=== PATIENT | male | born 1990 | race Caucasian/White ===

== ENCOUNTER 2019-09-27 19:48 | Emergency (ER) | payer OTHER ==
[2019-09-27 19:56] VITALS: TEMP 98.4
[2019-09-27] MEDS ORDERED: DIPH,PERTUS(ACELL)TETVAC-LF 0.5 ML VIAL IM ONE (20:14)
[2019-09-27] MEDS ORDERED: LIDOCAINE 1% INJ 10MG/ML (20 ML MDV) SQ STA (20:14)
--- NOTE | 2019-09-27 21:18 | XR ---
PROCEDURE: XR finger LT - 3V DATE AND TIME: 09/27/2019 8:35 PM CLINICAL INDICATION: PHH; laceration with saw TECHNIQUE: Department protocol COMPARISON: None FINDINGS: There is no fracture or malalignment. No radiopaque foreign body. No soft tissue emphysema. The soft tissues demonstrate irregularity and soft tissue swelling distally, consistent with the clin ical history. IMPRESSION: Soft tissue changes.
--- NOTE | 2019-09-27 21:26 | ED ---
General Adult HPI - General Chief complaint: Wound/Laceration Stated complaint: LT finger injury Time Seen by Provider: 09/27/19 19:57 Source: patient, RN notes reviewed, old records reviewed Mode of arrival: ambulatory Limitations: no limitations - History of Present Illness Initial comments: 29-year-old male patient presents to the chief complaint of laceration to left first digit with a table saw. Patient was cutting a piece of wood. Patient does not know date of last tetanus. Denies any other acute complaints. Systemic: Pt denies fatigue, fever/chills, rash. Pt denies weakness, night sweats, weight loss. Neuro: Pt denies headache, visual disturbances, syncope or pre-syncope. HEENT: Pt denies ocular discharge or irritation, otalgia, rhinorrhea, pharyngitis or notable lymphadenopathy. Cardiopulmonary: Pt denies chest pain, SOB, heart palpitations, dyspnea on exertion. Abdominal/GI: Pt denies abdominal pain, n/v/d. : Pt denies dysuria, burning w/ urination, frequency/urgency. Denies new onset urinary or bowel incontinence. MSK: Pt denies myalgia, loss of strength or function in extremities. Neuro: Pt denies new onset weakness, paresthesias. - Related Data Home Medications Medication Instructions Recorded Confirmed No Known Home Medications 09/27/19 09/27/19 Allergies Allergy/AdvReac Type Severity Reaction Status Date / Time No Known Allergies Allergy Verified 09/27/19 21:09 Review of Systems ROS Statement: Those systems with pertinent positive or pertinent negative responses have been documented in the HPI. ROS Other: All systems not noted in ROS Statement are negative. Past Medical History Past Medical History: No Reported History History of Any Multi-Drug Resistant Organisms: None Reported Past Surgical History: Tonsillectomy Past Psychological History: No Psychological Hx Reported Smoking Status: Never smoker Past Alcohol Use History: Occasional Past Drug Use History: None Reported General Exam - General Exam Comments Initial Comments: Constitutional: NAD, AOX3, Pt has pleasant affect. HEENT: NC/AT, trachea midline, neck supple,External ears appear normal, without discharge. Mucous membranes moist. Eyes PERRLA, EOM intact. There is no scleral icterus. No pallor noted. Cardiopulmonary: RRR, no murmurs, rubs or gallops, no JVD noted. Lungs CTAB in anterior and posterior elizabeth. No peripheral edema. Neuro: CN II-XII grossly intact. MSK: 2 cm stellate laceration pad of the second digit of left hand. Full active range of motion of digit. Neurovascularly intact. Capillary refill less than 2 seconds. Approximated with 4 simple interrupted sutures. Limitations: no limitations Course Vital Signs 09/27/19 09/27/19 19:53 21:53 Temperature 98.4 F Pulse Rate 80 82 Respiratory 20 18 Rate Blood Pressure 134/76 126/78 O2 Sat by Pulse 97 100 Oximetry Procedures - Laceration Laceration #1 Consent Obtained: verbal consent Indication: laceration Site: hand (pad of second digit left hand ) Size (cm): 2 Description: stellate, irregular Anesthetic Used: lidocaine 1% Anesthesia Technique: local infiltration Amount (mls): 2 Pre-repair: wound explored, irrigated extensively, deep structures intact Type of Sutures: nylon Size of Sutures: 5-0 Number of Sutures: 4 Technique: simple, interrupted Patient Tolerated Procedure: well, no complications Medical Decision Making - Medical Decision Making 29-year-old male patient presents to the chief complaint of laceration to left first digit with a table saw. Patient was cutting a piece of wood. Patient does not know date of last tetanus. Denies any other acute complaints. Patient vital signs are stable, afebrile. Physical exam displayed: 2 cm stellate laceration pad of the second digit of left hand. Full active range of motion of digit. Neurovascularly intact. Capillary refill less than 2 seconds. Approximated with 4 simple interrupted sutures. Plain film did not display any fracture or foreign body. Patient will be discharged with outpatient follow-up and return precautions. Case discussed with Dr. Mueller. Disposition Clinical Impression: Finger laceration Disposition: HOME SELF-CARE Condition: Stable Instructions (If sedation given, give patient instructions): Laceration (ED) Additional Instructions: Please return for suture removal: Hand: 7-10 days keep area clean and covered. Please monitor for signs and symptoms of infection including: redness, warmth, drainage, discharge. Please return to ED if these signs or symptoms occur, new signs or symptoms develop or if condition worsens in anyway. Follow up with PCP in 1-2 days. Return to ER if any worsening symptoms. Is patient prescribed a controlled substance at d/c from ED?: No Referrals: None,Stated [Primary Care Provider] - 1-2 days
[2019-09-27 21:55] VITALS: BP 126/78; PULSE 82; RESP 18
== END 2019-09-27 21:55 | disposition home or self-care (01) ==
LOC: EC 19:48
DX: S61.012A Laceration without foreign body of left thumb without damage to nail, initial encounter (principal); S61.211A Laceration without foreign body of left index finger without damage to nail, initial encounter; Z23 Encounter for immunization; W31.2XXA Contact with powered woodworking and forming machines, initial encounter; Y93.89 Activity, other specified; Y92.009 Unspecified place in unspecified non-institutional (private) residence as the place of occurrence of the external cause
CPT/HCPCS: 73140; 90715; 90471; 99283; 12001; J2001

== ENCOUNTER 2020-08-09 17:38 | Emergency (ER) | payer OTHER ==
[2020-08-09 17:43] VITALS: TEMP 98.1
[2020-08-09] MEDS ORDERED: PROPARACAINE 0.5% OPHTH DROPS 15 ML BTL RIGHT EYE STA (17:49)
[2020-08-09] MEDS ORDERED: FLUORESCEIN STRIPS 1 MG STRIP RIGHT EYE ONE (17:49)
--- NOTE | 2020-08-09 17:56 | ED ---
Eye Problem HPI - General Chief complaint: Eye Problems Stated complaint: rt eye lac Source: patient, family, old records reviewed Mode of arrival: ambulatory Limitations: no limitations - History of Present Illness Initial comments: 30-year-old white male, alert and oriented 4, well-appearing, presents to the emergency room ambulatory with complaints of sustaining a direct blow to his nose and right eye with a piece of stainless steel out working on his boat. Patient states that his eye didn't water and he does have some photophobia. Patient states it feels better when it is covered. Patient has a history of asthma only no medical history states the pain is 4 out of 10 and feels like an ache. Patient denies any visual disturbances no blurred vision. MD chief complaint: eye pain, eye injury -: hour(s) (2) Location: right eye Place: street/outdoors If Injury: direct trauma (Piece of metal came back and hit him in the eye and nose overworking about) Eye Symptoms: redness, foreign body sensation, photophobia Severity scale (1-10): 4 If Pain, Quality: aching Consistency: constant Context: trauma Associated Symptoms: none Treatments Prior to Arrival: none - Related Data Previous Rx's Medication Instructions Recorded Erythromycin Ophth Oint (1 gm) 1 applic RIGHT EYE QID 3 Days #1 08/09/20 [Ilotycin Ophth Oint (1 gm)] tube Allergies Allergy/AdvReac Type Severity Reaction Status Date / Time No Known Allergies Allergy Verified 08/09/20 17:42 Review of Systems ROS Statement: Those systems with pertinent positive or pertinent negative responses have been documented in the HPI. ROS Other: All systems not noted in ROS Statement are negative. Past Medical History Past Medical History: Asthma History of Any Multi-Drug Resistant Organisms: None Reported Past Surgical History: Tonsillectomy Past Psychological History: No Psychological Hx Reported Smoking Status: Light tobacco smoker Past Alcohol Use History: Occasional Past Drug Use History: None Reported General Exam Limitations: no limitations General appearance: alert, in no apparent distress Head exam: Present: normocephalic, normal inspection, other (Abrasion to the right inner nasal bone) Expanded Head exam: Present: abrasion. Absent: laceration, contusion, hematoma, raccoon eyes, hernandez's sign, general tenderness, tenderness of temporal artery, CSF rhinorrhea, CSF otorrhea Eye exam: Present: normal appearance, PERRL, EOMI. Absent: scleral icterus, conjunctival injection, nystagmus, periorbital swelling, periorbital tenderness Pupils: Present: normal accommodation Expanded Eyelids: Normal Inspection: Bilateral Pupils: Regular, Round: Bilateral, Reactive: Bilateral Sclera/Conjunctival: Normal Inspection: Left, Injection: Right, Hemorrhage: Right (subconjunctival hemmorage; no corneal abrasion) ENT exam: Present: normal exam, normal oropharynx, mucous membranes moist, normal external ear exam Neck exam: Present: normal inspection, full ROM. Absent: tenderness, meningismus, lymphadenopathy, thyromegaly Respiratory exam: Present: normal lung sounds bilaterally. Absent: respiratory distress, wheezes, rales, rhonchi, stridor Cardiovascular Exam: Present: regular rate, normal rhythm, normal heart sounds. Absent: systolic murmur, diastolic murmur, rubs, gallop, clicks GI/Abdominal exam: Present: soft, normal bowel sounds. Absent: distended, tenderness, guarding, rebound, rigid Rectal exam: Present: deferred Extremities exam: Present: normal inspection, full ROM, normal capillary refill. Absent: tenderness, pedal edema, joint swelling, calf tenderness Neurological exam: Present: alert, oriented X3, CN II-XII intact, normal gait Psychiatric exam: Present: normal affect, normal mood Skin exam: Present: warm, dry, intact, normal color. Absent: rash, cyanosis, diaphoretic, erythema, petechiae, pallor, mottled Course Vital Signs 08/09/20 17:39 Temperature 98.1 F Pulse Rate 88 Respiratory 20 Rate Blood Pressure 141/83 O2 Sat by Pulse 96 Oximetry Procedures - Procedures Initial comment: Gan lamp with fluorescein exam negative for foreign body Medical Decision Making - Medical Decision Making Patient with no visual disturbances or blurred vision. Visual acuity intact. With lamp exam with fluorescein done with no evidence of corneal abrasion. Eyelids inverted with no evidence of foreign body. There is a subconjunctival hemorrhage. Extraocular movements are intact. There is no other injuries patient denies any other head, and no loss of consciousness. Patient states his tetanus up-to-date. Patient will be treated prophylactically with erythromycin ophthalmic for 3 days. Case discussed with Dr. Harman. Disposition Clinical Impression: Eye injury, non-penetrating, Subconjunctival hemorrhage of right eye Disposition: HOME SELF-CARE Condition: Good Instructions (If sedation given, give patient instructions): Subconjunctival Hemorrhage (ED), Eye Pain (ED) Additional Instructions: Use medication as prescribed and follow-up with ophthalmology on Tuesday. Return if worsening pain or blurred vision or headache. Prescriptions: Erythromycin Ophth Oint (1 gm) [Ilotycin Ophth Oint (1 gm)] 1 applic RIGHT EYE QID 3 Days #1 tube Is patient prescribed a controlled substance at d/c from ED?: No Referrals: None,Stated [Primary Care Provider] - 1-2 days Skinny Lee MD [STAFF PHYSICIAN] - 1-2 days Time of Disposition: 18:09
[2020-08-09 18:27] VITALS: BP 146/96; PULSE 86; RESP 18
== END 2020-08-09 18:27 | disposition home or self-care (01) ==
LOC: EC 17:38
DX: S05.01XA Injury of conjunctiva and corneal abrasion without foreign body, right eye, initial encounter (principal); J45.909 Unspecified asthma, uncomplicated; F17.200 Nicotine dependence, unspecified, uncomplicated; W22.8XXA Striking against or struck by other objects, initial encounter; Y93.89 Activity, other specified; Y92.89 Other specified places as the place of occurrence of the external cause
CPT/HCPCS: 99283